=== PATIENT | female | born 1995 | race Caucasian/White ===

== ENCOUNTER 2019-02-07 17:58 | Emergency (ER) | payer MEDICAID ==
[~2019-02-07] VITALS: Ht 167.6 cm; Wt 93.2 kg
[2019-02-07 18:40] LABS: BASOPHILS # (AUTO) 0.1 X10'3 (0-0.2); BASOPHILS % (AUTO) 0.5 % (0-1); EOSINOPHILS # (AUTO) 0.1 X10'3 (0-0.9); EOSINOPHILS % (AUTO) 0.6 % (0-6); HEMOGLOBIN 13.7 g/dl (12.0-16.0); LYMPHOCYTES # (AUTO) 2.6 X10'3 (1.1-4.8); MEAN CORPUSCULAR HEMOGLOBIN 30.8 PG (27.0-31.0); MEAN CORPUSCULAR HGB CONC 33.5 g/dL (33.0-36.5); MEAN PLATELET VOLUME 9.8 FL (7.4-10.4); MONOCYTES # (AUTO) 0.9 X10'3 (0-0.9); MONOCYTES % (AUTO) 7.7 % (2-12); NEUTROPHILS # (AUTO) 8.1 X10'3 (1.8-7.7); NEUTROPHILS % (AUTO) 69.2 % (42-75); PLATELET COUNT 230 X10'3 (140-440); RED BLOOD COUNT 4.46 X10'6 (4.20-5.60); RED CELL DISTRIBUTION WIDTH 13.6 % (11.5-14.5); WHITE BLOOD COUNT 11.6 X10'3 (4.5-11.0)
[2019-02-07 18:51] LABS: ALANINE AMINOTRANSFERASE 27 U/L (12-78); ALBUMIN 4.4 G/DL (3.4-5.0); ALKALINE PHOSPHATASE 107 IU/L (46-116); ANION GAP 12 (8-16); ASPARTATE AMINO TRANSFERASE 19 U/L (10-37); BILIRUBIN,TOTAL 0.2 MG/DL (0.1-1.0); BLOOD UREA NITROGEN 15 MG/DL (7-18); BUN/CREATININE RATIO 18.8 (6.6-38.0); CHLORIDE 104 MMOL/L (99-107); GLUCOSE 94 MG/DL (70-104); POTASSIUM 3.8 MMOL/L (3.5-5.1); SODIUM 141 MMOL/L (135-145); TOTAL CARBON DIOXIDE 25.4 MMOL/L (24-32); TOTAL PROTEIN 8.9 G/DL (6.4-8.2); eGFR > 90 ML/MIN
[2019-02-07 19:00] LABS: ETHANOL < 0.010 GM/DL (0.0-0.010)
[2019-02-07 19:16] LABS: CLARITY,URINE CLEAR (Clear); COLOR,URINE YELLOW (Yellow); GLUCOSE, URINE NEGATIVE (Neg); KETONES,URINE NEGATIVE (Neg); LEUKOCYTE ESTERASE ,URINE NEGATIVE (Neg); NITRITES, URINE POSITIVE (Neg); OCCULT BLOOD,URINE SMALL (Neg); PROTEIN,URINE NEGATIVE (Neg); URINE HCG NEGATIVE (NEG); UROBILINOGEN,URINE 0.2 E.U/dL (0.2-1.0)
[2019-02-07 19:22] LABS: UA COLLECTION TYPE CLN CATCH MIDSTREAM
[2019-02-07 19:23] LABS: MUCUS STRANDS NONE SEEN /LPF (Neg); RBC,URINE NONE SEEN /HPF (0-2); SQUAMOUS EPITHELIAL CELL,UR FEW /LPF (FEW); WBC,URINE NONE SEEN /HPF (0-4)
[2019-02-07 19:24] LABS: BACTERIA,URINE 3+ /HPF (Neg)
[2019-02-07] MEDS ORDERED: LORazepam 1 MG tablet PO ONE (19:25)
--- NOTE | 2019-02-07 19:28 | NUR ---
23 year old female admitted to bed 23 from the main ER. She was accompanied by her parents. She is very tearful, depressed and having urges to cut on herself and stated she is unsure if she wants to kill herself or not. Her anxiety is very high. Provider made aware and order for ativan given. The parents and the patient were made aware of the plan of care.
--- NOTE | 2019-02-07 19:32 | NUR ---
is the patient's mother's number, Walter.
[2019-02-07] MEDS: cephalexin 250mg capsule PO SCH ×2 (19:39→20:00)
[2019-02-07 19:41] LABS: URINE AMPHETAMINE SCREEN NEGATIVE (Neg); URINE BARBITUATE SCREEN NEGATIVE (Neg); URINE BENZODIAZEPINES SCREEN NEGATIVE (Neg); URINE CANNABINOID SCREEN NEGATIVE (Neg); URINE COCAINE SCREEN NEGATIVE (Neg); URINE METHADONE SCREEN NEGATIVE (Neg); URINE OPIATE SCREEN NEGATIVE (Neg); URINE PHENCYCLIDINE SCREEN NEGATIVE (Neg)
--- NOTE | 2019-02-07 19:57 | NUR ---
Pt packet sent to [facility]
--- NOTE | 2019-02-07 21:03 | NUR ---
The patient appears to be sleeping. The family have gone home for the night but do want to be involved in her plan of care. [facility] has not yet evaluated her
[2019-02-07] MEDS ORDERED: CEPH250T PO (22:46)
[2019-02-07 23:08] VITALS: BP 118/79
== END 2019-02-07 23:10 | disposition home or self-care (01) ==
LOC: ER 17:59
DX: F32.9 Major depressive disorder, single episode, unspecified (principal); N39.0 Urinary tract infection, site not specified
CPT/HCPCS: 36415; 80053; 80305; 80320; 81001; 81025; 84443; 85025; 99284

== ENCOUNTER 2021-04-24 13:48 | Emergency (ER) | payer MEDICAID ==
[~2021-04-24] VITALS: Ht 167.6 cm; Wt 100.0 kg
[2021-04-24 14:18] VITALS: BP 129/84
[2021-04-24] MEDS ORDERED: NAPR-56 PO (14:29)
[2021-04-24] MEDS ORDERED: CYCL-1 PO (14:29)
== END 2021-04-24 14:39 | disposition home or self-care (01) ==
LOC: ER 13:49
DX: S13.4XXA Sprain of ligaments of cervical spine, initial encounter (principal); Z79.899 Other long term (current) drug therapy; W22.12XA Striking against or struck by front passenger side automobile airbag, initial encounter; Y93.89 Activity, other specified; Y92.89 Other specified places as the place of occurrence of the external cause; Y99.8 Other external cause status
CPT/HCPCS: 99283

== ENCOUNTER 2021-09-15 13:41 | Emergency (ER) | payer MEDICAID ==
[~2021-09-15] VITALS: Ht 167.6 cm; Wt 117.3 kg
[~2021-09-15 13:41] MED LIST: CYCL-1 PO
[2021-09-15 13:44] VITALS: BP 135/85
[2021-09-15 14:47] LABS: CLARITY,URINE CLEAR (Clear); COLOR,URINE YELLOW (Yellow); GLUCOSE, URINE NEGATIVE (Neg); KETONES,URINE NEGATIVE (Neg); LEUKOCYTE ESTERASE ,URINE NEGATIVE (Neg); NITRITES, URINE NEGATIVE (Neg); OCCULT BLOOD,URINE NEGATIVE (Neg); PROTEIN,URINE NEGATIVE (Neg); UA COLLECTION TYPE CLN CATCH MIDSTREAM; UROBILINOGEN,URINE 0.2 E.U/dL (0.2-1.0)
[2021-09-15 14:58] LABS: BASOPHILS % (AUTO) 0.2 % (0-1); EOSINOPHILS # (AUTO) 0.1 X10'3 (0-0.9); HEMOGLOBIN 12.2 g/dl (12.0-16.0); LYMPHOCYTES % (AUTO) 17.6 % (21-51); MEAN CORPUSCULAR VOLUME 87.9 FL (78-98); MEAN PLATELET VOLUME 9.6 FL (7.4-10.4); MONOCYTES # (AUTO) 0.7 X10'3 (0-0.9); MONOCYTES % (AUTO) 6.6 % (2-12); NEUTROPHILS # (AUTO) 8.3 X10'3 (1.8-7.7); NEUTROPHILS % (AUTO) 74.6 % (42-75); PLATELET COUNT 259 X10'3 (140-440); RED CELL DISTRIBUTION WIDTH 13.9 % (11.5-14.5); WHITE BLOOD COUNT 11.1 X10'3 (4.5-11.0)
[2021-09-15 15:08] LABS: ALANINE AMINOTRANSFERASE 22 U/L (12-78); ALBUMIN 3.1 G/DL (3.4-5.0); ALBUMIN/GLOBULIN RATIO 0.7 (1.1-1.5); ALKALINE PHOSPHATASE 90 IU/L (46-116); ANION GAP 8 (8-16); ASPARTATE AMINO TRANSFERASE 16 U/L (10-37); BILIRUBIN,TOTAL 0.2 MG/DL (0.1-1.0); BLOOD UREA NITROGEN 5 MG/DL (7-18); BUN/CREATININE RATIO 9.3 (6.6-38.0); CHLORIDE 103 MMOL/L (99-107); CREATININE 0.54 MG/DL (0.40-0.90); GLUCOSE 90 MG/DL (70-104); POTASSIUM 4.1 MMOL/L (3.5-5.1); SODIUM 136 MMOL/L (135-145); TOTAL CARBON DIOXIDE 24.9 MMOL/L (24-32); TOTAL PROTEIN 7.7 G/DL (6.4-8.2); eGFR > 90 ML/MIN
== END 2021-09-15 15:30 | disposition home or self-care (01) ==
LOC: ER 13:42
DX: O36.5920 Maternal care for other known or suspected poor fetal growth, second trimester, not applicable or unspecified (principal); Z3A.23 23 weeks gestation of pregnancy; Z79.899 Other long term (current) drug therapy
CPT/HCPCS: 36415; 80053; 81003; 85025; 99283